=== PATIENT | male | born 1945 | race Caucasian/White ===

== ENCOUNTER → 2023-07-04 | Outpatient (CLI) | payer MEDICARE, OTHER ==
--- NOTE | 2023-07-04 12:02 | Diagnostic Imaging Report ---
AORTA SONO [id number] INDICATION: Abdominal aortic aneurysm COMPARISON: None available. TECHNIQUE: Grayscale, color Doppler and spectral Doppler imaging of the aorta FINDINGS: There is fusiform aneurysmal dilatation of the infrarenal aorta measuring 3.3 cm in maximal diameter. The aorta remains patent with normal directional flow on color Doppler imaging. No aneurysmal dilatation of the common iliac arteries. IMPRESSION: Infrarenal abdominal aortic aneurysm measures 3.3 cm. Dictated by: Dictated on workstation # [id number]
== END ==
LOC: RAD 07:10
PROVIDERS: ATTEND Internal Medicine Cardiovascular Disease
DX: I71.43 Infrarenal abdominal aortic aneurysm, without rupture (principal)
CPT/HCPCS: 76775

== ENCOUNTER → 2023-08-20 | Outpatient (CLI) | payer MEDICARE, OTHER ==
[~2023-08-20] MED LIST: CATHETER FLUSH 10 ML SYR IVP PRN; REGADENOSON 0.4 MG/5 ML SYR IV ONE
[2023-08-20 08:58] VITALS: BP 144/80
[2023-08-20 09:20] VITALS: BP 185/83
--- NOTE | 2023-08-20 11:32 | Cardiology Stress Test Report ---
Stress Test Report Date of Procedure/Referring: Date of Procedure: Aug 20, 2023 PCP Deyvi Guerin MD Admitting Physician Admitting Physician: Attending Physician: Maylin Mcmahan MD Baseline Heart Rate: 65 Baseline Blood Pressure: Blood Pressure Systolic: 185 Blood Pressure Diastolic: 83 Baseline Vitals Vital Signs Date Time Temp Pulse Resp B/P (MAP) Pulse Ox O2 Delivery O2 Flow Rate FiO2 08/20/23 08:58 61 17 144/80 (101) Baseline EKG: Baseline EKG: NSR Summary After explaining the procedure to the patient, he signed a consent and then brought to the stress nuclear laboratory. Patient received 0.4 mg Lexiscan for stress test, ECG, heart rate and blood pressure were monitored continuously. Resting and stress dose of radio tracer were injected, imaging was acquired and reviewed in short axis, horizontal long axis and vertical long axis views. TID: 0.9 SSS: 4 SDS: 2 EF: 63 Patient was unable to exercise beyond 4 minutes and 25 seconds on standard Patric protocol achieving 72% of maximal expected heart rate, test was terminated and converted to Lexiscan Myoview stress test Patient tolerated Lexiscan well Diaphragmatic attenuation with typical male pattern with no significant ischemia or infarction noted on SPECT images Normal left ventricular size, ejection fraction 63% CC MAYLIN Jose MD Aug 20, 2023 11:32
== END ==
LOC: CARD 07:04
PROVIDERS: ATTEND Internal Medicine Cardiovascular Disease
DX: R07.9 Chest pain, unspecified (principal)
CPT/HCPCS: 78452; 93017; A9502